=== PATIENT | male | born 1955 ===

== ENCOUNTER 2020-11-13 13:26 | Inpatient (IN) ==
[2020-11-13] MEDS ORDERED: Ipratropium Neb 0.5 MG NEBULIZER IH PRN (19:23)
[2020-11-13] MEDS ORDERED: Furosemide 40 MG TABLET PO PRN (19:23)
[2020-11-13] MEDS ORDERED: Nitroglycerin 0.4 MG TAB.SUBL SL PRN (19:23)
[2020-11-13] MEDS ORDERED: polyethylene glycoL 3350 17 GM POWD.PACK PO PRN (19:23)
[2020-11-13] MEDS ORDERED: GuaiFENesin Liq 200 MG/10 ML UDC PO PRN (19:23)
[2020-11-13] MEDS ORDERED: Albuterol 2.5 MG/3 ML NEBULIZER IH PRN (19:23)
[2020-11-13] MEDS ORDERED: Dextrose Gel 15 GM/37.5 ML TUBE PO PRN ×2 (19:26)
[2020-11-13] MEDS ORDERED: D5% in Water 1,000 ML IVC PRN (19:26)
[2020-11-13] MEDS ORDERED: *HR* Dextrose 50 % in Water (Vial) 50 ML VIAL IVP PRN (19:26)
[2020-11-13] MEDS ORDERED: *HR* HYDROcodone/Acet 5/325 mg TABLET PO ONE (21:22)
[2020-11-13] MEDS: Levalbuterol Neb 0.63 MG/3 ML IH SCH (21:55)
[2020-11-13] MEDS: Mirtazapine 15 MG TABLET PO SCH (22:05)
[2020-11-13] MEDS: Divalproex Sodium 125 MG Sprinkle Capsule (DR) PO SCH (22:05)
[2020-11-13] MEDS: Apixaban 5 MG TABLET PO SCH (22:05)
[2020-11-14] MEDS: Levalbuterol Neb 0.63 MG/3 ML IH SCH ×4 (03:53→22:14)
[2020-11-14 06:48] LABS: Basophils # 0.1 K/mcL (0.0-0.2); Basophils % 0.4 %; Eosinophils # 0.1 K/mcL (0.0-0.6); Eosinophils % 0.5 %; Hematocrit 40.6 % (37.5-50.1); Immature Granulocytes % 1.6 % (0-4); Lymphocytes % 29.6 %; Mean Corpuscular HGB Conc 34.5 g/dL (31.6-35.5); Mean Corpuscular Hemoglobin 32.7 pg (28.0-33.3); Mean Corpuscular Volume 94.9 fL (83.0-100.0); Mean Platelet Volume 11.2 fL (9.4-12.4); Monocytes # 1.2 K/mcL (0.0-1.3); Monocytes % 8.7 %; Platelet Count 336 K/mcL (140-400); Red Blood Count 4.28 M/mcL (4.19-5.50); Red Cell Distribution Width 13.9 % (11.5-14.5); Segmented Neutrophils % 59.2 %; White Blood Count 13.4 K/mcL (4.3-11.1)
[2020-11-14 07:07] LABS: Neutrophils # 7.9 K/mcL (1.6-8.9)
[2020-11-14 07:17] LABS: BUN/Creatinine Ratio 22 (6-26); Blood Urea Nitrogen 29 mg/dL (8-23); Calcium 8.5 mg/dL (8.6-10.3); Carbon Dioxide 29 mEq/L (23-29); Chloride 100 mEq/L (98-107); Glucose 144 mg/dL (70-105); Osmolality,Calculated 288 (280-300); Potassium 4.2 mEq/L (3.5-5.1); Sodium 135 mEq/L (136-145); eGFR For African Americans > 60 (> 60); eGFR For Non-African Americans 55 (> 60)
[2020-11-14] MEDS ORDERED: carvediloL 6.25 MG TABLET PO SCH (08:00)
[2020-11-14] MEDS: Insulin LISPRO 300 UNITS/3 ML VIAL SUBQ SCH ×3 (09:00→17:53)
[2020-11-14] MEDS ORDERED: predniSONE 20 MG TABLET PO SCH (09:00)
[2020-11-14] MEDS ORDERED: Isosorbide MONOnitrate (24 HR) 30 MG TAB.ER.24H PO SCH (09:00)
[2020-11-14] MEDS: Aspirin Enteric Coated 81 MG Tablet PO SCH (09:01)
[2020-11-14] MEDS: Divalproex Sodium 125 MG Sprinkle Capsule (DR) PO SCH ×2 (09:01→20:14)
[2020-11-14] MEDS: Spironolactone 25 MG TABLET PO SCH (09:02)
[2020-11-14] MEDS: lisinopriL 5 MG TABLET PO SCH (09:02)
[2020-11-14] MEDS: Apixaban 5 MG TABLET PO SCH ×2 (09:15→20:14)
[2020-11-14] MEDS ORDERED: Evolocumab [Repatha Sureclick] 140 MG/ML SQ SCH (12:00)
[2020-11-14] MEDS ORDERED: *HR* LORazepam 0.5 MG TABLET PO PRN (15:57)
[2020-11-14] MEDS: carvediloL 6.25 MG TABLET PO SCH (17:59)
[2020-11-14] MEDS: Mirtazapine 15 MG TABLET PO SCH (20:14)
[2020-11-14] MEDS: Insulin DETEMIR 100 UNIT/ML X5UNITS SUBQ SCH (20:15)
[2020-11-15] MEDS: Levalbuterol Neb 0.63 MG/3 ML IH SCH ×2 (04:17→09:30)
[2020-11-15] MEDS: Insulin LISPRO 300 UNITS/3 ML VIAL SUBQ SCH ×3 (08:22→16:37)
[2020-11-15] MEDS: Furosemide 20 MG TABLET PO SCH (08:29)
[2020-11-15] MEDS: Divalproex Sodium 125 MG Sprinkle Capsule (DR) PO SCH ×2 (08:29→22:39)
[2020-11-15] MEDS: carvediloL 6.25 MG TABLET PO SCH ×2 (08:30→16:37)
[2020-11-15] MEDS: predniSONE 10 MG TABLET PO SCH (08:30)
[2020-11-15] MEDS: Isosorbide MONOnitrate (24 HR) 60 MG TAB.ER.24H PO SCH (08:31)
[2020-11-15] MEDS: Spironolactone 25 MG TABLET PO SCH (08:31)
[2020-11-15] MEDS: Aspirin Enteric Coated 81 MG Tablet PO SCH (08:31)
[2020-11-15] MEDS: lisinopriL 5 MG TABLET PO SCH (08:31)
[2020-11-15] MEDS: Apixaban 5 MG TABLET PO SCH ×2 (10:12→22:39)
[2020-11-15] MEDS ORDERED: Levalbuterol Neb 0.63 MG/3 ML IH PRN (10:30)
[2020-11-15] MEDS ORDERED: Isosorbide MONOnitrate (24 HR) 30 MG TAB.ER.24H PO ONE (15:13)
[2020-11-15] MEDS: Insulin DETEMIR 100 UNIT/ML X5UNITS SUBQ SCH (22:39)
[2020-11-15] MEDS: Mirtazapine 15 MG TABLET PO SCH (22:39)
[2020-11-16] MEDS: Aspirin Enteric Coated 81 MG Tablet PO SCH (10:31)
[2020-11-16] MEDS: Apixaban 5 MG TABLET PO SCH ×2 (10:31→20:23)
[2020-11-16] MEDS: Insulin LISPRO 300 UNITS/3 ML VIAL SUBQ SCH ×3 (10:31→16:32)
[2020-11-16] MEDS: Divalproex Sodium 125 MG Sprinkle Capsule (DR) PO SCH ×2 (10:32→20:23)
[2020-11-16] MEDS: Furosemide 20 MG TABLET PO SCH (10:33)
[2020-11-16] MEDS: Isosorbide MONOnitrate (24 HR) 60 MG TAB.ER.24H PO SCH (10:33)
[2020-11-16] MEDS: predniSONE 10 MG TABLET PO SCH (10:37)
[2020-11-16] MEDS: carvediloL 6.25 MG TABLET PO SCH (10:37)
[2020-11-16] MEDS: Spironolactone 25 MG TABLET PO SCH (10:37)
[2020-11-16] MEDS: lisinopriL 5 MG TABLET PO SCH (10:38)
[2020-11-16] MEDS ORDERED: *HR* Labetalol 20 MG/4 ML SYRINGE IVP ONE (19:27)
[2020-11-16 19:43] LABS: Basophils % 0.3 %; Eosinophils # 0.1 K/mcL (0.0-0.6); Eosinophils % 0.6 %; Hematocrit 40.1 % (37.5-50.1); Immature Granulocytes % 0.7 % (0-4); Lymphocytes # 3.1 K/mcL (0.6-4.6); Lymphocytes % 28.1 %; Mean Corpuscular HGB Conc 34.9 g/dL (31.6-35.5); Mean Corpuscular Volume 94.6 fL (83.0-100.0); Mean Platelet Volume 11.4 fL (9.4-12.4); Monocytes # 1.5 K/mcL (0.0-1.3); Monocytes % 13.2 %; Neutrophils # 6.3 K/mcL (1.6-8.9); Platelet Count 318 K/mcL (140-400); Red Blood Count 4.24 M/mcL (4.19-5.50); Red Cell Distribution Width 13.8 % (11.5-14.5); Segmented Neutrophils % 57.1 %; White Blood Count 11.1 K/mcL (4.3-11.1)
[2020-11-16] MEDS ORDERED: Morphine Sulfate 2 MG/ML SYRINGE IVP ONE ×2 (19:44→23:08)
[2020-11-16 19:52] LABS: INR 1.2; Prothrombin Time 14.3 Seconds (9.4-12.1)
[2020-11-16 19:54] LABS: Activated Partial Thrombo Time 25.2 Seconds (26.0-36.0)
[2020-11-16 19:56] LABS: BUN/Creatinine Ratio 18 (6-26); Blood Urea Nitrogen 25 mg/dL (8-23); Calcium 8.9 mg/dL (8.6-10.3); Carbon Dioxide 27 mEq/L (23-29); Chloride 102 mEq/L (98-107); Glucose 139 mg/dL (70-105); Osmolality,Calculated 295 (280-300); Potassium 3.8 mEq/L (3.5-5.1); Sodium 139 mEq/L (136-145); eGFR For African Americans > 60 (> 60); eGFR For Non-African Americans 53 (> 60)
[2020-11-16] MEDS: Mirtazapine 15 MG TABLET PO SCH (20:23)
[2020-11-16] MEDS: Insulin DETEMIR 100 UNIT/ML X5UNITS SUBQ SCH (20:24)
[2020-11-16] MEDS ORDERED: Isovue-370 500 ML BOTTLE IVP ONE (20:28)
[2020-11-16 20:51] VITALS: BP 136/84
== END 2020-11-17 00:04 | disposition short-term general hospital (02) | DRG 945 ==
LOC: INPPIK 20:23
PROVIDERS: ADMIT Family Medicine; ATTEND Family Medicine

== ENCOUNTER 2021-07-26 13:12 | Inpatient (IN) ==
[~2021-07-26 13:12] MED LIST: Acetaminophen 325 MG TABLET PO PRN; Ondansetron ODT 4 MG TAB.RAPDIS SL PRN
[2021-07-26] MEDS: Ipratropium/Albuterol Neb 3 ML IH SCH ×2 (16:24→22:28)
[2021-07-26] MEDS: carvediloL 6.25 MG TABLET PO SCH (17:10)
[2021-07-26] MEDS ORDERED: Warfarin perPT PO PRN (18:00)
[2021-07-26] MEDS ORDERED: *HR* Warfarin 2.5 MG TABLET PO ONE (18:00)
[2021-07-26] MEDS ORDERED: Apixaban 5 MG TABLET PO SCH (21:00)
[2021-07-26] MEDS: traZODone 50 MG TABLET PO SCH (21:46)
[2021-07-26] MEDS: Gabapentin 300 MG CAPSULE PO SCH (21:46)
[2021-07-26] MEDS: Divalproex Sodium 125 MG Sprinkle Capsule (DR) PO SCH (21:46)
[2021-07-27] MEDS: Ipratropium/Albuterol Neb 3 ML IH SCH ×2 (04:16→10:44)
[2021-07-27 06:50] VITALS: TEMP 97.9
[2021-07-27 07:09] LABS: Basophils % 0.2 %; Eosinophils % 0.2 %; Hematocrit 45.6 % (37.5-50.1); Hemoglobin 15.3 g/dL (12.9-16.9); Immature Granulocytes % 0.5 % (0-4); Lymphocytes # 3.3 K/mcL (0.6-4.6); Lymphocytes % 26.9 %; Mean Corpuscular HGB Conc 33.6 g/dL (31.6-35.5); Mean Corpuscular Hemoglobin 31.7 pg (28.0-33.3); Mean Corpuscular Volume 94.6 fL (83.0-100.0); Mean Platelet Volume 10.9 fL (9.4-12.4); Monocytes % 8.5 %; Neutrophils # 7.8 K/mcL (1.6-8.9); Platelet Count 317 K/mcL (140-400); Red Blood Count 4.82 M/mcL (4.19-5.50); Red Cell Distribution Width 12.5 % (11.5-14.5); Segmented Neutrophils % 63.7 %; White Blood Count 12.3 K/mcL (4.3-11.1)
[2021-07-27 07:19] LABS: Monocytes # 1.1 K/mcL (0.0-1.3)
[2021-07-27 07:27] LABS: INR 2.6; Prothrombin Time 29.2 Seconds (9.4-12.1)
[2021-07-27 07:43] LABS: BUN/Creatinine Ratio 15 (6-26); Blood Urea Nitrogen 20 mg/dL (8-23); Calcium 9.6 mg/dL (8.6-10.3); Carbon Dioxide 31 mEq/L (23-29); Chloride 100 mEq/L (98-107); Glucose 193 mg/dL (70-105); Osmolality,Calculated 292 (280-300); Potassium 4.4 mEq/L (3.5-5.1); Sodium 137 mEq/L (136-145); eGFR For African Americans > 60 (> 60); eGFR For Non-African Americans 54 (> 60)
[2021-07-27] MEDS ORDERED: lisinopriL 5 MG TABLET PO SCH (09:00)
[2021-07-27] MEDS ORDERED: predniSONE 20 MG TABLET PO SCH (09:00)
[2021-07-27] MEDS ORDERED: Azithromycin 250 MG TABLET PO SCH (09:00)
[2021-07-27] MEDS ORDERED: PARoxetine 10 MG TABLET PO SCH (09:00)
[2021-07-27] MEDS ORDERED: Isosorbide MONOnitrate (24 HR) 30 MG TAB.ER.24H PO SCH (09:00)
[2021-07-27] MEDS ORDERED: Spironolactone 25 MG TABLET PO SCH (09:00)
[2021-07-27] MEDS ORDERED: NON-FORMULARY MEDICATION 1 EACH EACH (Ezetimibe [Zetia] 10 MG Tablet) PO SCH (09:00)
[2021-07-27] MEDS: Divalproex Sodium 125 MG Sprinkle Capsule (DR) PO SCH ×2 (09:21→20:32)
[2021-07-27] MEDS: Gabapentin 300 MG CAPSULE PO SCH ×2 (09:22→20:32)
[2021-07-27] MEDS: carvediloL 6.25 MG TABLET PO SCH ×3 (09:22→16:22)
[2021-07-27] MEDS ORDERED: Ipratropium/Albuterol Neb 3 ML IH PRN (10:56)
[2021-07-27] MEDS ORDERED: *HR* Warfarin 0.5 MG TABLET PO ONE (18:00)
[2021-07-27 20:02] VITALS: BP 122/77; PULSE 85; RESP 18
[2021-07-27] MEDS: traZODone 50 MG TABLET PO SCH (20:32)
[2021-07-27 23:14] VITALS: O2SAT 95
== END 2021-07-28 10:00 | disposition short-term general hospital (02) | DRG 948 ==
LOC: INPPIK 13:12
PROVIDERS: ADMIT Internal Medicine; ATTEND Internal Medicine